=== PATIENT | female | born 1980 | race African-American/Black ===

== ENCOUNTER 2017-08-24 23:29 | Emergency (ER) | payer SELFPAY ==
[2017-08-25 00:16] LABS: Basophils # (Auto) 0.1 K/mm3 (0.0-0.1); Basophils % (Auto) 0.8 % (0.0-1.8); Eosinophils # (Auto) 0.2 K/mm3 (0.0-0.4); Eosinophils % (Auto) 1.9 % (0.0-4.3); Lymphocytes # (Auto) 2.6 K/mm3 (1.2-5.4); Lymphocytes % (Auto) 25.4 % (13.4-35.0); Mean Corpuscular HGB Conc 37 % (30-34); Mean Corpuscular Hemoglobin 36 pg (28-32); Mean Corpuscular Volume 97 fl (79-97); Monocytes # (Auto) 1.1 K/mm3 (0.0-0.8); Monocytes % (Auto) 10.6 % (0.0-7.3); Platelet Count 305 K/mm3 (140-440); Red Blood Count 3.65 M/mm3 (3.65-5.03); Red Cell Distribution Width 12.4 % (13.2-15.2)
[2017-08-25 00:18] LABS: Hematocrit 35.6 % (30.3-42.9)
[2017-08-25 00:31] LABS: Alanine Aminotransferase 25 units/L (7-56); Albumin 4.3 g/dL (3.9-5); BUN/Creatinine Ratio 17; Blood Urea Nitrogen 10 mg/dL (7-17); Calcium 9.4 mg/dL (8.4-10.2); Hemolysis Index 4
--- NOTE | 2017-08-25 01:54 | Emergency Department Report ---
ED General Adult HPI - General Chief complaint: Pain General Stated complaint: LUPUS PAIN Time Seen by Provider: 08/25/17 00:36 Source: patient Mode of arrival: Ambulatory Limitations: No Limitations - History of Present Illness Initial comments: Patient has a history of lupus. She says for the past 2-3 weeks she's been having a lupus flare where she is having pain in all her joints. This is similar to her past flares. Her last flare was a month ago. Patient states she ran out of her plaque when ill 2 weeks ago. She has been following up with the [place] [facility] for a refill, but the prescription has not arrived. She is endorsing mild left chest pain that is pleuritic, nonexertional , and nonradiating. No shortness of breath. She says she normally has chest pain with her lupus flares. She is also endorsing mild left abdominal pain for the past 2 days that is not affected by food and associated with urinary frequency. Afebrile. Patient is currently taking 5 mg prednisone daily as part of her routine this regimen. Nonsmoker. Denies alcohol use. No history of drugs or family history of ACS. Severity scale (0 -10): 9 - Related Data Previous Rx's Medication Instructions Recorded Last Taken Type Hydroxychloroquine [Plaquenil] 250 mg PO QDAY #10 tablet 08/25/17 Unknown Rx Prednisone 5 mg PO DAILY #10 tablet 08/25/17 Unknown Rx Allergies Allergy/AdvReac Type Severity Reaction Status Date / Time No Known Allergies Allergy Verified 08/24/17 23:42 ED Review of Systems ROS: Stated complaint: LUPUS PAIN Other details as noted in HPI Comment: All other systems reviewed and negative Cardiovascular: chest pain Gastrointestinal: abdominal pain Genitourinary: frequency Musculoskeletal: arthralgia ED Past Medical Hx - Past Medical History Additional medical history: SLE - Surgical History Hx Cholecystectomy: Yes - Social History Smoking Status: Never Smoker Substance Use Type: None - Medications Home Medications: Home Medications Medication Instructions Recorded Confirmed Last Taken Type Hydroxychloroquine [Plaquenil] 250 mg PO QDAY #10 tablet 08/25/17 Unknown Rx Prednisone 5 mg PO DAILY #10 tablet 08/25/17 Unknown Rx ED Physical Exam - General Limitations: No Limitations General appearance: alert, in no apparent distress - Head Head exam: Present: atraumatic, normocephalic - Eye Eye exam: Present: normal appearance - ENT ENT exam: Present: mucous membranes moist - Neck Neck exam: Present: normal inspection - Respiratory Respiratory exam: Present: normal lung sounds bilaterally. Absent: respiratory distress - Cardiovascular Cardiovascular Exam: Present: regular rate, normal rhythm. Absent: systolic murmur, diastolic murmur, rubs, gallop - GI/Abdominal GI/Abdominal exam: Present: soft, tenderness (left flank, no cva), normal bowel sounds. Absent: guarding, rebound, rigid - Extremities Exam Extremities exam: Present: normal inspection - Back Exam Back exam: Present: normal inspection - Neurological Exam Neurological exam: Present: alert, oriented X3 - Psychiatric Psychiatric exam: Present: normal affect, normal mood - Skin Skin exam: Present: warm, dry, intact, normal color. Absent: rash ED Course Vital Signs 08/24/17 08/25/17 08/25/17 23:42 00:30 02:20 Temperature 98.8 F 98 F Pulse Rate 85 87 Respiratory 18 15 16 Rate Blood Pressure 108/56 Blood Pressure 110/55 [Left] O2 Sat by Pulse 100 100 Oximetry 08/25/17 08/25/17 02:21 02:30 Temperature Pulse Rate 84 Respiratory 16 12 Rate Blood Pressure 101/67 Blood Pressure [Left] O2 Sat by Pulse 100 Oximetry ED Medical Decision Making - Lab Data Result diagrams: 08/24/17 23:48 08/24/17 23:48 - EKG Data -: EKG Interpreted by Me EKG shows normal: sinus rhythm, axis, intervals, QRS complexes, ST-T waves Rate: normal - EKG Data Interpretation: no acute changes - Radiology Data Radiology results: report reviewed, image reviewed - Medical Decision Making 37-year-old female with past medical history of lupus on daily prednisone that presents to the ER with concern for lupus flare. EKG is nonischemic. Lab work is unremarkable. Chest x-ray shows no focal process. I have a low Suspicion for PE given unremarkable vitals/EKG and that her symptoms are similar to her past lupus flares. Presentation appears consistent with a lupus flare. Patient has been given a prescription for 10 days of plaquenil and prednisone. I have instructed her to follow up with the rheumatology clinic for further refills of her prescription medication. - Differential Diagnosis ACS, PE, pneumonia, lupus flare, viral syndrome, sepsis Critical care attestation.: If time is entered above; I have spent that time in minutes in the direct care of this critically ill patient, excluding procedure time. ED Disposition Clinical Impression: Lupus (systemic lupus erythematosus), Chest pain, Arthralgia Disposition: TO HOME OR SELFCARE Is pt being admited?: No Does the pt Need Aspirin: No Condition: Stable Instructions: Chest Pain (ED) Additional Instructions: Please follow up with the rheumatology clinic to get refills of your plaquenil and prednisone prescriptions. Prescriptions: Hydroxychloroquine [Plaquenil] 250 mg PO QDAY #10 tablet Prednisone 5 mg PO DAILY #10 tablet
[2017-08-25] MEDS ORDERED: TYLENOL PO ONE (02:14)
[2017-08-25] MEDS ORDERED: ULTRAM PO ONE (02:14)
[2017-08-25 02:45] VITALS: BP 101/67
[2017-08-25 03:09] LABS: Amorphous Crystals,Urine 1+; Bilirubin,Urine NEG (Negative); Blood,Urine NEG (Negative); Calcium Oxalate Crystals,Urine 2+; Color,Urine Yellow (Yellow); Granular Casts,Urine 3 /LPF; Mucus,Urine 2+ /HPF; Protein,Urine <15 mg/dL mg/dL (Negative); WBC,Urine < 1.0 /HPF (0.0-6.0)
[2017-08-25 03:10] LABS: HCG Qualitative,Urine Negative (Negative)
--- NOTE | 2017-08-25 03:15 | XRay Report ---
FINAL REPORT EXAM: XR CHEST ROUTINE 2V HISTORY: chest pain COMPARISON: None available. FINDINGS:: Frontal and lateral views of the chest obtained. Cardiac silhouette is within normal limits. No focal consolidation or effusion. No pneumothorax. Visualized bony thorax is grossly intact. IMPRESSION:: No acute findings.
== END 2017-08-25 03:42 | disposition home or self-care (01) ==
LOC: ED 23:29
DX: M32.9 Systemic lupus erythematosus, unspecified (principal); R07.9 Chest pain, unspecified; M79.1 Myalgia; Z90.49 Acquired absence of other specified parts of digestive tract
CPT/HCPCS: 36415; 71046; 80053; 81001; 81025; 85025; 85652; 86140; 93005; 93010; 99284